=== PATIENT | male | born 1960 | race Caucasian/White ===

== ENCOUNTER 2019-05-25 11:47 | Emergency (ER) | payer BC ==
[2019-05-25] MEDS ORDERED: Sodium Chloride 0.9% 10 ML Syringe FLUSH PRN (12:33)
--- NOTE | 2019-05-25 12:34 | EDM.PDOC ---
<Deedee Stanley - Last Filed: 05/25/19 12:49> ED HPI GENERAL MEDICAL PROBLEM - General Chief Complaint: General Stated Complaint: DIZZY Time Seen by Provider: 05/25/19 12:04 Source of Information: Reports: Patient History Limitations: Reports: No Limitations - History of Present Illness INITIAL COMMENTS - FREE TEXT/NARRATIVE: 58-year-old male presents with left ear tinnitus and dizziness. He describes the dizziness as being lightheaded, worse with walking, and worse with eye movements. He states that it came on suddenly while at work this morning and had to sit down and place his hands on his head. He notes that his cool hands helped the dizziness. He states he had a similar problem 2 years ago when he was told that he had fluid behind the left ear. At that time, he was treated with a tapering dose of a steroid. At the completion of the steroid, it had not fully improved and was put on a second round of steroids that cleared it up. He also stated a couple years ago he had an episode of dizziness where he lost his vision momentarily but did not pass out. This morning at the onset of his dizziness, he was near paramedics who took his blood pressure and performed an EKG. They did not find any abnormal rhythms at that time. He currently takes aspirin every other day and vitamin E for his joints. He also utilizes ear drops to soften cerumen. He denies any other symptoms such as palpitations, chest pain, headache, vision changes, sinus problems, neck or back pain, and hearing loss. 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 (patient takes it every other day for prophylaxis ) - Related Data Allergies Allergy/AdvReac Type Severity Reaction Status Date / Time No Known Allergies Allergy Verified 05/25/19 12:06 Home Meds: Home Meds Meclizine [Antivert] 25 mg PO Q6H PRN #30 tab 05/25/19 [Rx] predniSONE [Prednisone] 40 mg PO DAILY #10 tablet 05/25/19 [Rx] Past Medical History - Past Health History Medical/Surgical History: Denies Medical/Surgical History Social & Family History - Caffeine Use Caffeine Use: Reports: Coffee ED ROS GENERAL - Review of Systems Review Of Systems: See Below Constitutional: Reports: No Symptoms HEENT: Reports: Nosebleed (notices scant blood when blowing his nose, feels it is due to dry air ), Other (left ear tinnitus). Denies: Ear Pain, Eye Pain, Hearing Loss, Sinus Problem, Vision Change Respiratory: Reports: No Symptoms Cardiovascular: Reports: No Symptoms Endocrine: Reports: No Symptoms GI/Abdominal: Reports: No Symptoms : Reports: No Symptoms Musculoskeletal: Reports: No Symptoms Skin: Reports: No Symptoms Neurological: Reports: Dizziness. Denies: Confusion, Headache, Numbness, Paresthesia, Syncope, Trouble Speaking, Difficulty Walking, Change in Speech Psychiatric: Reports: No Symptoms Hematologic/Lymphatic: Reports: No Symptoms ED EXAM, GENERAL - Physical Exam Exam: See Below Exam Limited By: No Limitations General Appearance: Alert, WD/WN, No Apparent Distress Eye Exam: Bilateral Eye: EOMI, Normal Inspection, PERRL Ears: Normal External Exam, Normal Canal, Hearing Grossly Normal, Normal TMs, Other (cerumen impaction bilaterally ) Ear Exam: Bilateral Ear: Auricle Normal, Canal Normal, TM normal Nose: Normal Inspection, Normal Mucosa, No Blood Throat/Mouth: Normal Inspection, Normal Voice Head: Atraumatic, Normocephalic Neck: Normal Inspection, Supple, Non-Tender, Full Range of Motion Respiratory/Chest: No Respiratory Distress, Lungs Clear, Normal Breath Sounds, No Accessory Muscle Use Cardiovascular: Normal Peripheral Pulses, Regular Rate, Rhythm, No Murmur GI/Abdominal: Normal Bowel Sounds, Soft, Non-Tender Neurological: Alert, Oriented, CN II-XII Intact, Normal Cognition, Normal Gait Psychiatric: Normal Affect, Normal Mood Skin Exam: Warm, Dry, Intact, Normal Color Course - Vital Signs Last Recorded V/S: Last Vital Signs Temp 97.3 F 05/25/19 12:01 Pulse 57 L 05/25/19 12:01 Resp 18 05/25/19 12:01 BP 139/89 05/25/19 12:01 Pulse Ox 100 05/25/19 12:01 - Orders/Labs/Meds Orders: Active Orders 24 hr Category Date Time Status Cardiac Monitoring [RC] . DIRECTED Care 05/25/19 12:33 Active EKG Documentation Completion [RC] STAT Care 05/25/19 12:34 Active Peripheral IV Care [RC] . DIRECTED Care 05/25/19 12:34 Active Sodium Chloride 0.9% [Normal Saline] 1,000 ml Med 05/25/19 12:45 Active IV .BOLUS Sodium Chloride 0.9% [Saline Flush] Med 05/25/19 12:33 Active 10 ml FLUSH ASDIRECTED PRN Peripheral IV Insertion Adult [OM.PC] Stat Oth 05/25/19 12:33 Ordered Medication Orders Sodium Chloride (Normal Saline) 1,000 mls @ 1,000 mls/hr IV .BOLUS JEANETTE Last Admin: 05/25/19 12:48 Dose: 1,000 mls/hr Sodium Chloride (Saline Flush) 10 ml FLUSH ASDIRECTED PRN PRN Reason: Keep Vein Open Last Admin: 05/25/19 12:49 Dose: 10 ml Labs: Laboratory Tests 05/25/19 05/25/19 Range/Units 12:40 12:40 WBC 6.85 (4.23-9.07) K/mm3 RBC 4.90 (4.63-6.08) M/mm3 Hgb 16.1 (13.7-17.5) gm/dl Hct 45.0 (40.1-51.0) % MCV 91.8 (79.0-92.2) fl MCH 32.9 H (25.7-32.2) pg MCHC 35.8 H (32.2-35.5) g/dl RDW Std Deviation 44.1 H (35.1-43.9) fL Plt Count 180 (163-337) K/mm3 MPV 10.6 (9.4-12.3) fl Neut % (Auto) 67.3 (34.0-67.9) % Lymph % (Auto) 23.5 (21.8-53.1) % [place] % (Auto) 7.0 (5.3-12.2) % Eos % (Auto) 1.3 (0.8-7.0) Baso % (Auto) 0.6 (0.1-1.2) % Neut # (Auto) 4.61 (1.78-5.38) K/mm3 Lymph # (Auto) 1.61 (1.32-3.57) K/mm3 [place] # (Auto) 0.48 (0.30-0.82) K/mm3 Eos # (Auto) 0.09 (0.04-0.54) K/mm3 Baso # (Auto) 0.04 (0.01-0.08) K/mm3 Sodium 143 (136-145) mEq/L Potassium 3.9 (3.5-5.1) mEq/L Chloride 105 (98-107) mEq/L Carbon Dioxide 29 (21-32) mEq/L Anion Gap 12.9 (5-15) BUN 9 (7-18) mg/dL Creatinine 1.2 (0.7-1.3) mg/dL Est Cr Clr Drug Dosing 70.59 mL/min Estimated GFR (MDRD) > 60 (>60) mL/min BUN/Creatinine Ratio 7.5 L (14-18) Glucose 101 (74-106) mg/dL Calcium 8.7 (8.5-10.1) mg/dL Total Bilirubin 0.7 (0.2-1.0) mg/dL AST 17 (15-37) U/L ALT 23 (16-63) U/L Alkaline Phosphatase 71 (46-116) U/L Troponin I < 0.017 (0.00-0.056) ng/mL Total Protein 7.3 (6.4-8.2) g/dl Albumin 3.9 (3.4-5.0) g/dl Globulin 3.4 gm/dL Albumin/Globulin Ratio 1.2 (1-2) Meds: Medications Generic Name Dose Route Start Last Admin Trade Name Freq PRN Reason Stop Dose Admin Sodium Chloride 1,000 mls @ 1,000 mls/hr 05/25/19 12:45 05/25/19 12:48 Normal Saline IV 1,000 mls/hr .BOLUS JEANETTE Administration Sodium Chloride 10 ml 05/25/19 12:33 05/25/19 12:49 Saline Flush FLUSH 10 ml ASDIRECTED PRN Administration Keep Vein Open Discontinued Medications Generic Name Dose Route Start Last Admin Trade Name Freq PRN Reason Stop Dose Admin Meclizine HCl 25 mg 05/25/19 12:34 05/25/19 12:49 Antivert PO 05/25/19 12:35 25 mg ONETIME ONE Administration Departure - Departure Disposition: Home, Self-Care 01 Clinical Impression: Dizziness, Vertigo Tinnitus Qualifiers: Laterality: left Qualified Code(s): H93.12 - Tinnitus, left ear - Discharge Information Prescriptions: Meclizine [Antivert] 25 mg PO Q6H PRN #30 tab PRN Reason: Dizziness predniSONE [Prednisone] 40 mg PO DAILY #10 tablet Referrals: Carlos Pang MD [Primary Care Provider] - 1 Week Forms: ED Department Discharge Additional Instructions: Take the prednisone daily for 5 days. Take the antivert 25 mg every 6 hours as needed for dizziness. Follow up with Dr Larry and Dr Alvarez at the [facility] [place]. Please return if you are worse. Sepsis Event Note - Evaluation Sepsis Screening Result: No Definite Risk - Focused Exam Vital Signs: Vital Signs Temp Pulse Resp BP Pulse Ox 05/25/19 12:01 97.3 F 57 L 18 139/89 100 Date Exam was Performed: 05/25/19 Time Exam was Performed: 12:49 - My Orders Last 24 Hours: My Active Orders 05/25/19 12:33 Cardiac Monitoring [RC] . DIRECTED Sodium Chloride 0.9% [Saline Flush] 10 ml FLUSH ASDIRECTED PRN Peripheral IV Insertion Adult [OM.PC] Stat 05/25/19 12:34 EKG Documentation Completion [RC] STAT Peripheral IV Care [RC] . DIRECTED 05/25/19 12:45 Sodium Chloride 0.9% [Normal Saline] 1,000 ml IV .BOLUS - Assessment/Plan Last 24 Hours: My Active Orders 05/25/19 12:33 Cardiac Monitoring [RC] . DIRECTED Sodium Chloride 0.9% [Saline Flush] 10 ml FLUSH ASDIRECTED PRN Peripheral IV Insertion Adult [OM.PC] Stat 05/25/19 12:34 EKG Documentation Completion [RC] STAT Peripheral IV Care [RC] . DIRECTED 05/25/19 12:45 Sodium Chloride 0.9% [Normal Saline] 1,000 ml IV .BOLUS <Frank Plaza - Last Filed: 05/25/19 14:00> EKG INTERPRETATION EKG Date: 05/25/19 Time: 12:43 Rhythm: Other (sinus bradycardia) Rate (Beats/Min): 57 [place]: Normal P-Wave: Present QRS: Normal ST-T: Normal QT: Normal Course - Re-Assessments/Exams Free Text/Narrative Re-Assessment/Exam: 05/25/19 13:49 I examined the patient myself and I agree with [facility]'s assessment and plan. 05/25/19 13:50 I ordered an IV NS 1L bolus, antivert 25mg PO, EKG and labs. His EKG shows a sinus bradycardia. His CBC and CMP look good. His troponin is normal. 05/25/19 13:56 He has the tinnitus and dizziness. I will get him on some prednisone and antivert and have her follow up with Dr Larry and an engineering and scientific programmer. Departure - Departure Time of Disposition: 14:00 Condition: Good - Discharge Information *PRESCRIPTION DRUG MONITORING PROGRAM REVIEWED*: Not Applicable *COPY OF PRESCRIPTION DRUG MONITORING REPORT IN PATIENT MICH: Not Applicable Sepsis Event Note - Focused Exam Date Exam was Performed: 05/25/19 Time Exam was Performed: 13:56
[2019-05-25] MEDS ORDERED: Sodium Chloride 0.9% 1,000 ML IV SCH (12:45)
== END 2019-05-25 14:20 | disposition home or self-care (01) ==
LOC: JD.ED 11:47
DX: H93.12 Tinnitus, left ear (principal); R42 Dizziness and giddiness
CPT/HCPCS: 36415; 80053; 84484; 85025; 93005; 96360; 99284; A9270; J7030; 93010; 99283

== ENCOUNTER 2019-07-20 06:22 | Emergency (ER) | payer BC ==
[2019-07-20] MEDS ORDERED: methylPREDNISolone Sodium Succinate 125 MG/2 ML SDV IM ONE (07:09)
[2019-07-20] MEDS ORDERED: Acetaminophen/HYDROcodone 325-5 MG Tab PO ONE (07:09)
--- NOTE | 2019-07-20 07:17 | EDM.PDOC ---
ED HPI GENERAL MEDICAL PROBLEM - General Chief Complaint: Lower Extremity Injury/Pain Stated Complaint: THIGH AND LEG PAIN Time Seen by Provider: 07/20/19 06:57 Source of Information: Reports: Patient, RN Notes Reviewed - History of Present Illness INITIAL COMMENTS - FREE TEXT/NARRATIVE: 58-year-old male comes in with right low back pain with radiation to right leg. This started 2 days ago, getting worse. He has had occasional low back problems in the past but nothing of this nature with radiation to the right leg. No particular injury that he is aware of. He has been taking a lot of Aleve without meaningful relief. No abdominal pain fever chills or other unusual symptomatology. Right Leg Pain Score (Numeric/FACES): 10 - Related Data Allergies Allergy/AdvReac Type Severity Reaction Status Date / Time No Known Allergies Allergy Verified 07/20/19 06:36 Home Meds: Home Meds Acetaminophen/HYDROcodone [[place] 325-5 MG] 1 tab PO Q4HR PRN #20 tablet [Rx] predniSONE [Prednisone] 50 mg PO DAILY #7 tablet 07/20/19 [Rx] Past Medical History - Past Health History Medical/Surgical History: Denies Medical/Surgical History Cardiovascular History: Reports: Angina Musculoskeletal History: Reports: Back Pain, Chronic Social & Family History - Tobacco Use Smoking Status *Q: Current Every Day Smoker Years of Tobacco use: 41 Packs/Tins Daily: 0.5 Used Tobacco, but Quit: No - Caffeine Use Caffeine Use: Reports: Coffee - Alcohol Use Number of Drinks Per Day: 1 - Recreational Drug Use Recreational Drug Use: No Review of Systems - Review of Systems Review Of Systems: See Below Constitutional: Denies: Chills, Fever Mouth/Throat: Reports: No Symptoms Respiratory: Denies: Shortness of Breath Cardiovascular: Denies: Chest Pain GI/Abdominal: Denies: Abdominal Pain Musculoskeletal: Reports: Leg Pain. Denies: Neck Pain, Shoulder Pain, Arm Pain Skin: Reports: No Symptoms Neurological: Denies: Numbness, Tingling ED EXAM, GENERAL - Physical Exam Exam: See Below General Appearance: Alert, Moderate Distress Throat/Mouth: Normal Inspection Head: Atraumatic Neck: Supple Respiratory/Chest: No Respiratory Distress, Lungs Clear, Normal Breath Sounds Cardiovascular: Regular Rate, Rhythm GI/Abdominal: Soft, Non-Tender Back Exam: No: CVA Tenderness (L), CVA Tenderness (R) Extremities: Normal Inspection, Normal Range of Motion. No: Joint Swelling, Leg Pain, Increased Warmth, Redness Neurological: Alert, Oriented, No Motor/Sensory Deficits, Other (SLR positive on the right negative on the left) Skin Exam: Warm, Dry, Normal Color Course - Vital Signs Last Recorded V/S: Last Vital Signs Temp 98.6 F 07/20/19 06:30 Pulse 73 07/20/19 06:30 Resp 20 07/20/19 06:30 BP 170/104 H 07/20/19 06:30 Pulse Ox 100 07/20/19 06:30 - Orders/Labs/Meds Meds: Medications Discontinued Medications Generic Name Dose Route Start Last Admin Trade Name Katherine PRN Reason Stop Dose Admin Hydrocodone Bitart/Acetaminophen 1 tab 07/20/19 07:09 07/20/19 07:17 [place] 325-5 Mg PO 07/20/19 07:10 1 tab ONETIME ONE Administration Methylprednisolone Sodium Succinate 125 mg 07/20/19 07:09 07/20/19 07:18 Solu-Medrol IM 07/20/19 07:10 125 mg ONETIME ONE Administration Departure - Departure Time of Disposition: 07:39 Disposition: Home, Self-Care 01 Clinical Impression: Back pain Qualifiers: Back pain location: low back pain Chronicity: acute Back pain laterality: right Sciatica presence: with sciatica Sciatica laterality: sciatica of right side Qualified Code(s): M54.41 - Lumbago with sciatica, right side - Discharge Information Prescriptions: Acetaminophen/HYDROcodone [[place] 325-5 MG] 1 tab PO Q4HR PRN #20 tablet PRN Reason: Pain predniSONE [Prednisone] 50 mg PO DAILY #7 tablet Instructions: Sciatica, [id number] Referrals: Carlos Pang MD [Primary Care Provider] - Forms: ED Department Discharge, ED Return to Work/School Form Additional Instructions: Rest back, no heavy lifting. Alternate ice and heat as needed, you may continue Aleve 2 tablets twice daily as needed, prednisone 50 mg later this afternoon and then every morning for the next 6 days. You may take hydrocodone 1 tablet every 4 to 6 hours as needed for severe pain. Prescriptions have been sent electronic to [place] pharmacy located at the [facility] [employer] [place]. When discomfort becomes less severe then alternate Aleve and Tylenol. Follow-up with a medical provider in 3 to 4 days if not much better. Return to ED as needed. Sepsis Event Note - Evaluation Sepsis Screening Result: No Definite Risk - Focused Exam Date Exam was Performed: 07/20/19 Time Exam was Performed: 19:27
== END 2019-07-20 08:00 | disposition home or self-care (01) ==
LOC: JD.ED 06:22
DX: M54.41 Lumbago with sciatica, right side (principal); F17.210 Nicotine dependence, cigarettes, uncomplicated
CPT/HCPCS: 96372; 99283; A9270; J2930

== ENCOUNTER 2019-07-23 10:23 | Emergency (ER) | payer BC ==
[2019-07-23] MEDS ORDERED: Ketorolac 60 MG/2 ML SDV IM ONE (11:55)
[2019-07-23] MEDS ORDERED: Orphenadrine 100 MG Tab.ER PO ONE (11:55)
--- NOTE | 2019-07-23 12:02 | EDM.PDOC ---
ED HPI GENERAL MEDICAL PROBLEM - General Chief Complaint: Back Pain or Injury Stated Complaint: THIGH AND LEG PAIN Time Seen by Provider: 07/23/19 11:22 Source of Information: Reports: Patient, RN Notes Reviewed History Limitations: Reports: No Limitations - History of Present Illness INITIAL COMMENTS - FREE TEXT/NARRATIVE: Patient is a 58-year-old male who presents to the ED for evaluation of his ongoing right lower back/hip/thigh pain. Patient notes that the pain did start worsening last week Saturday. He made it throughout the weekend, then came to the ER on Saturday due to the increasing pain. Patient was evaluated by Dr. Christopher at that time, and was thought to have sciatica in nature of his right leg. Was given a shot of Solu-Medrol, sent home with some hydrocodone and prednisone. It appears the patient was to be taking 50 mg daily for the next 7 days. He is complaining about the hydrocodone making him lightheaded and dizzy , not helping with the pain much at all. He states that the steroids do seem to help quite a bit. He is not having any sort of loss of bowel or bladder control. He notes that he is feeling kind of like a knot in his right buttock, with a spasm that goes to his right thigh. Patient states he could not get into see his regular provider until August 09. He seems to think that the pain worsens at nighttime. He has been icing it, stretching and using hot showers as well for pain relief. Right Lower Back Pain Score (Numeric/FACES): 8 - Related Data Allergies Allergy/AdvReac Type Severity Reaction Status Date / Time No Known Allergies Allergy Verified 07/20/19 06:36 Home Meds: Home Meds Acetaminophen/HYDROcodone [[place] 325-5 MG] 1 tab PO Q4HR PRN #20 tablet [Rx] Orphenadrine [Norflex] 100 mg PO BID PRN #20 tab 07/23/19 [Rx] methylPREDNISolone [Medrol Dose Pack] 4 mg PO ASDIRECTED #1 dospk 07/23/19 [Rx] Past Medical History Cardiovascular History: Reports: Angina Musculoskeletal History: Reports: Back Pain, Chronic Social & Family History - Tobacco Use Smoking Status *Q: Current Every Day Smoker Years of Tobacco use: 40 Packs/Tins Daily: 0.5 - Caffeine Use Caffeine Use: Reports: Coffee ED ROS GENERAL - Review of Systems Review Of Systems: Comprehensive ROS is negative, except as noted in HPI. Musculoskeletal: Reports: Joint Pain (R hip/leg pain) Neurological: Denies: Numbness, Tingling ED EXAM,LOWER BACK PAIN/INJURY - Physical Exam Exam: See Below Exam Limited By: No Limitations General Appearance: Alert, WD/WN, No Apparent Distress Throat/Mouth: Normal Inspection, Normal Lips, Normal Teeth, Normal Gums, Normal Oropharynx, Normal Voice, No Airway Compromise Head: Atraumatic, Normocephalic Respiratory/Chest: No Respiratory Distress, Lungs Clear, Normal Breath Sounds, No Accessory Muscle Use, Chest Non-Tender Cardiovascular: Normal Peripheral Pulses, Regular Rate, Rhythm, No Murmur GI/Abdominal: Normal Bowel Sounds, Soft, Non-Tender, No Distention, No Mass Back Exam: Normal Inspection Extremities: Normal Inspection, Normal Capillary Refill Neurological: Alert, Normal Mood/Affect, Normal Plantar Flexion, Straight Leg Raise (R), Difficulty Walking (limping gait d/t pain). No: No Motor/Sensory Deficits, Straight Leg Raise (L), Saddle Anesthesia Psychiatric: Normal Affect, Normal Mood Skin Exam: Warm, Dry, Intact, Normal Color, No Rash Course - Vital Signs Last Recorded V/S: Last Vital Signs Temp 98.1 F 07/23/19 10:42 Pulse 60 07/23/19 10:42 Resp 16 07/23/19 10:42 BP 172/110 H 07/23/19 10:42 Pulse Ox 98 07/23/19 10:42 - Orders/Labs/Meds Meds: Medications Discontinued Medications Generic Name Dose Route Start Last Admin Trade Name Katherine PRN Reason Stop Dose Admin Ketorolac Tromethamine 60 mg 07/23/19 11:55 07/23/19 12:03 Toradol IM 07/23/19 11:56 60 mg ONETIME ONE Administration Orphenadrine Citrate 100 mg 07/23/19 11:55 07/23/19 12:02 Norflex PO 07/23/19 11:56 100 mg ONETIME ONE Administration - Re-Assessments/Exams Free Text/Narrative Re-Assessment/Exam: 07/23/19 12:01 Patient presents to the ED for evaluation of his ongoing right back/leg pain. I have ordered 100 mg p.o. Norflex, and 60 mg IM Toradol for further pain management. Departure - Departure Time of Disposition: 12:29 Disposition: Home, Self-Care 01 Condition: Fair Clinical Impression: Muscle spasm of right lower extremity Low back pain Qualifiers: Chronicity: acute Back pain laterality: right Sciatica presence: with sciatica Sciatica laterality: sciatica of right side Qualified Code(s): M54.41 - Lumbago with sciatica, right side - Discharge Information *PRESCRIPTION DRUG MONITORING PROGRAM REVIEWED*: No *COPY OF PRESCRIPTION DRUG MONITORING REPORT IN PATIENT MICH: No Prescriptions: methylPREDNISolone [Medrol Dose Pack] 4 mg PO ASDIRECTED #1 dospk Orphenadrine [Norflex] 100 mg PO BID PRN #20 tab PRN Reason: muscle spasms Instructions: Back Exercises, [id number], Sciatica, [id number] Referrals: Carlos Pang MD [Primary Care Provider] - Forms: ED Department Discharge Additional Instructions: You have been evaluated in the ED for your low back/right leg pain Please use ice/heat as tolerated to the affected area. Please stop taking the prednisone as previously prescribed, and start taking the Medrol Dosepak that has been sent on your behalf to the [place] pharmacy located in the [facility]. You were also given a prescription for some muscle relaxers, please take as directed for further muscle spasms. You may take Tylenol 500 mg or ibuprofen 600mg q6 hrs or 2 tabs Aleve every 12 hours for pain relief. Please do so until you have a tolerable level of pain with activity. Do not exceed 4000mg Tylenol or 3200mg ibuprofen in a 24 hour time period. Please return to ED if your symptoms should change or worsen. Sepsis Event Note - Evaluation Sepsis Screening Result: No Definite Risk - Focused Exam Vital Signs: Vital Signs Temp Pulse Resp BP Pulse Ox 07/23/19 10:42 98.1 F 60 16 172/110 H 98 Date Exam was Performed: 07/23/19 Time Exam was Performed: 12:29
== END 2019-07-23 12:43 | disposition home or self-care (01) ==
LOC: JD.ED 10:23
DX: M54.41 Lumbago with sciatica, right side (principal); F17.210 Nicotine dependence, cigarettes, uncomplicated
CPT/HCPCS: 96372; 99283; A9270; J1885

== ENCOUNTER 2021-04-22 17:54 | Emergency (ER) | payer BC ==
[2021-04-22] MEDS ORDERED: Sodium Chloride 0.9% 10 ML Syringe FLUSH PRN (18:19)
[2021-04-22] MEDS ORDERED: Aspirin 81 MG Tab.Chew PO ONE (18:31)
--- NOTE | 2021-04-22 18:44 | EDM.PDOC ---
<MarcihomeroFrankLuis - Last Filed: 04/22/21 18:57> ED HPI GENERAL MEDICAL PROBLEM - General Chief Complaint: Cardiovascular Problem Stated Complaint: BLOOD PRESSURE HIGH THIGHT IN CHEST Time Seen by Provider: 04/22/21 18:12 Source of Information: Reports: Patient History Limitations: Reports: No Limitations - History of Present Illness INITIAL COMMENTS - FREE TEXT/NARRATIVE: The patient presents with dizziness, chest pain and elevated blood pressure. This all started on . He had to work on a tire at work and after that he had some dizziness. The dizziness comes and goes and is worse with movement. He has had this before. He has been checking his blood pressure and it has been creeping up. His has been as high as the 160 systolic. He developed some mild chest pain today after reading about dizziness. He has a bad family history of heart disease. Multiple siblings have heart disease. He has no fever, chills, cough, shortness of breath, abdominal pain, nausea or vomiting. Onset: Gradual Duration: Day(s): (3) Location: Reports: Chest Quality: Reports: Ache Severity: Mild Improves with: Reports: None Worsens with: Reports: None Associated Symptoms: Reports: Chest Pain. Denies: Cough, Fever/Chills, Headaches, Nausea/Vomiting, Shortness of Breath Chest Pain Score (Numeric/FACES): 2 - Related Data Allergies Allergy/AdvReac Type Severity Reaction Status Date / Time No Known Allergies Allergy Verified 07/20/19 06:36 Home Meds: Home Meds . [No Known Home Meds] 04/22/21 [History] Past Medical History - Past Health History Medical/Surgical History: Denies Medical/Surgical History Cardiovascular History: Reports: Angina Musculoskeletal History: Reports: Back Pain, Chronic Social & Family History - Caffeine Use Caffeine Use: Reports: Coffee ED ROS GENERAL - Review of Systems Review Of Systems: See Below Constitutional: Reports: No Symptoms HEENT: Reports: No Symptoms Respiratory: Reports: No Symptoms Cardiovascular: Reports: Chest Pain Endocrine: Reports: No Symptoms GI/Abdominal: Reports: No Symptoms : Reports: No Symptoms ED EXAM, GENERAL - Physical Exam Exam: See Below Exam Limited By: No Limitations General Appearance: Alert, No Apparent Distress Eye Exam: Right Eye: Nystagmus Ears: Normal External Exam Nose: Normal Inspection Head: Atraumatic, Normocephalic Neck: Normal Inspection Respiratory/Chest: No Respiratory Distress, Lungs Clear, Normal Breath Sounds Cardiovascular: Regular Rate, Rhythm, No Edema, No Murmur GI/Abdominal: Soft, Non-Tender, No Organomegaly, No Mass Back Exam: Normal Inspection Extremities: Normal Inspection Course - Re-Assessments/Exams Free Text/Narrative Re-Assessment/Exam: 04/22/21 18:48 I ordered an IV saline lock, EKG, CXR, labs, antivert, and aspirin. 04/22/21 18:57 It is change of shift. Dr Christopher to take over. Departure - Departure Disposition: Home, Self-Care 01 Clinical Impression: Atypical chest pain, Dizziness Hypertension Qualifiers: Hypertension type: unspecified Qualified Code(s): I10 - Essential (primary) hypertension Instructions: Vertigo Referrals: Carlos Pang MD [Primary Care Provider] - Forms: ED Department Discharge Additional Instructions: Antivert 1/2 of your 25 mg tabs, 12.5 mg twice daily for 3 days or until dizziness completely gone. Continue to check your BP 2 to 3 times daily, keep a record of that for Dr Larry. See Dr Larry next week in follow up, call for appointment Saturday AM. If unable to get in to see Dr Larry see one of the other providers. Return to ED as needed if symptoms worsening in any way. <Yohannes Christopher - Last Filed: 04/22/21 20:55> #1 Interpretation EKG Date: 04/22/21 Rhythm: NSR Tigrett: Normal P-Wave: Present QRS: Normal ST-T: Normal Course - Vital Signs Last Recorded V/S: Last Vital Signs Temp 96.9 F 04/22/21 18:21 Pulse 59 L 04/22/21 18:21 Resp 20 04/22/21 18:21 BP 168/98 H 04/22/21 18:21 Pulse Ox 98 04/22/21 18:21 - Orders/Labs/Meds Orders: Active Orders 24 hr Category Date Time Status Chest 1V Frontal [CR] Stat Exams 04/22/21 18:19 Taken Peripheral IV Insertion Adult [OM.PC] Stat Oth 04/22/21 18:19 Ordered Labs: Laboratory Tests 12/11/21 12/11/21 12/11/21 Range/Units 18:45 18:45 18:45 WBC 6.15 (4.23-9.07) K/mm3 RBC 4.68 (4.63-6.08) M/mm3 Hgb 15.4 (13.7-17.5) gm/dl Hct 43.0 (40.1-51.0) % MCV 91.9 (79.0-92.2) fl MCH 32.9 H (25.7-32.2) pg MCHC 35.8 H (32.2-35.5) g/dl RDW Std Deviation 43.2 (35.1-43.9) fL Plt Count 198 (163-337) K/mm3 MPV 11.1 (9.4-12.3) fl Neut % (Auto) 60.6 (34.0-67.9) % Lymph % (Auto) 29.1 (21.8-53.1) % Dickinson % (Auto) 7.6 (5.3-12.2) % Eos % (Auto) 2.0 (0.8-7.0) Baso % (Auto) 0.5 (0.1-1.2) % Neut # (Auto) 3.73 (1.78-5.38) K/mm3 Lymph # (Auto) 1.79 (1.32-3.57) K/mm3 Dickinson # (Auto) 0.47 (0.30-0.82) K/mm3 Eos # (Auto) 0.12 (0.04-0.54) K/mm3 Baso # (Auto) 0.03 (0.01-0.08) K/mm3 PT 10.5 (9.7-12.0) SECONDS INR 0.94 D-Dimer, Quantitative 0.43 (0.19-0.50) mg/L Sodium 143 (136-145) mEq/L Potassium 3.7 (3.5-5.1) mEq/L Chloride 108 H (98-107) mEq/L Carbon Dioxide 28 (21-32) mEq/L Anion Gap 10.7 (5-15) BUN 11 (7-18) mg/dL Creatinine 1.1 (0.7-1.3) mg/dL Est Cr Clr Drug Dosing 72.82 mL/min Estimated GFR (MDRD) > 60 (>60) mL/min BUN/Creatinine Ratio 10.0 L (14-18) Glucose 105 H (70-99) mg/dL Calcium 8.1 L (8.5-10.1) mg/dL Magnesium 2.0 (1.8-2.4) mg/dL Total Bilirubin 0.6 (0.2-1.0) mg/dL AST 11 L (15-37) U/L ALT 16 (16-63) U/L Alkaline Phosphatase 65 (46-116) U/L Troponin I < 0.017 (0.00-0.056) ng/mL Total Protein 6.5 (6.4-8.2) g/dl Albumin 3.3 L (3.4-5.0) g/dl Globulin 3.2 gm/dL Albumin/Globulin Ratio 1.0 (1-2) Meds: Medications Discontinued Medications Generic Name Dose Route Start Last Admin Trade Name Freq PRN Reason Stop Dose Admin Aspirin 324 mg 04/22/21 18:31 04/22/21 19:30 Aspirin 81 Mg Tab.Chew PO 04/22/21 18:32 324 mg ONETIME ONE Administration Meclizine HCl 25 mg 04/22/21 18:32 04/22/21 19:30 Meclizine 25 Mg Tab.Chew PO 04/22/21 18:33 25 mg ONETIME ONE Administration Sodium Chloride 10 ml 04/22/21 18:19 04/22/21 19:30 Sodium Chloride 0.9% 10 Ml Syringe FLUSH 10 ml ASDIRECTED PRN Administration Keep Vein Open - Re-Assessments/Exams Free Text/Narrative Re-Assessment/Exam: 04/22/21 19:41 Have assumed care from Dr Plaza, change of shift. I agree with his hx and exam as documented. 04/22/21 19:59. EKG does not show any acute changes, trop normal, BP has co ntinued to run in the 140's over 90's. No chest pain, very occasional PAC. Discharge instr. as documented. Departure - Departure Time of Disposition: 20:01 Condition: Fair Sepsis Event Note (ED) - Focused Exam Vital Signs: Vital Signs Temp Pulse Resp BP Pulse Ox 04/22/21 18:21 96.9 F 59 L 20 168/98 H 98
--- NOTE | 2021-04-23 08:01 | CR ---
Chest: Portable view of the chest was obtained. Comparison: Prior chest x-ray of 11/14/13. Heart size is normal. Tortuous thoracic aorta is seen. Lungs are clear with no acute parenchymal change. Bony structures show nothing acute. Impression: 1. Nothing acute is seen on portable chest x-ray. Diagnostic code #1
== END 2021-04-22 20:13 | disposition home or self-care (01) ==
LOC: JD.ED 17:54
DX: R07.89 Other chest pain (principal); R42 Dizziness and giddiness; I10 Essential (primary) hypertension
CPT/HCPCS: 36415; 71045; 80053; 83735; 84484; 85025; 85379; 85610; 93005; 99285; A9270; 93010